=== PATIENT | male | born 1960 | race Caucasian/White ===

== ENCOUNTER → 2024-05-05 | Outpatient (CLI) | payer BC, SELFPAY ==
[2024-05-05 12:11] LABS: Collection Type, Urine Clean Catch
[2024-05-05 12:52] LABS: Bilirubin,Urine Negative (Negative); Blood,Urine Negative (Negative); Clarity,Urine Clear (Clear/Hazy); Color,Urine Yellow (Lt Yel-Yel); Culture Indicated,Urine Not Indicated; Glucose, Urine 1+ (Negative); Hyaline Casts,Urine < 1 /hpf (0-1); Ketones,Urine Negative (Negative); Leukocyte Esterase,Urine Negative (Negative); Nitrite,Urine Negative (Negative); PH,Urine 5.5 (5.0-7.0); Protein,Urine Negative (Neg - Trace); RBC,Urine 1 /hpf (0-3); Specific Gravity,Urine 1.026 (1.001-1.035); Squamous Epithelial Cell,Urine < 1 /hpf (0-5); Urobilinogen,Urine Negative mg/dL (0.0-1.0); WBC,Urine 1 /hpf (0-5)
[2024-05-05 13:01] LABS: Glucose Estimated Average 97 mg/dL (80-131)
[2024-05-05 13:03] LABS: Prostate Specific Antigen 0.32 ng/mL (0-4.00)
[2024-05-05 13:06] LABS: Alanine Aminotransferase 38 U/L (10-49); Albumin, Serum 4.4 gm/dL (3.4-4.8); Albumin/Globulin Ratio 1.6 (1.2-2.2); Alkaline Phosphatase 109 U/L (46-116); Anion Gap 8 (7-16); Aspartate Amino Transferase 36 U/L (0-34); BUN/Creatinine Ratio 21 Ratio (12-20); Bilirubin,Total 0.5 mg/dL (0.3-1.2); Blood Urea Nitrogen 23 mg/dL (9-23); Carbon Dioxide 30.3 mMol/L (20.0-31.0); Cardiac Risk Estimate 3.9 RATIO (4.0-6.7); Chloride 105 mMol/L (98-107); Cholesterol 217 mg/dL (132-200); Creatinine (Component) 1.1 mg/dL (0.6-1.3); Globulin 2.8 gm/dL (2.3-3.5); Glucose 120 mg/dL (74-106); HDL Cholesterol 56 mg/dL (40-60); LDL Cholesterol,Calculated 124 mg/dL (0-130); Osmolality,Calculated 289 (275-295); Potassium 4.5 mMol/L (3.4-5.1); Sodium 143 mMol/L (136-145); Thyroid Stimulating Hormone 2.58 uIU/mL (0.55-4.78); Total Protein 7.2 gm/dL (5.7-8.2); Triglycerides 185 mg/dL (30-150); eGFR > 60 See Note
== END | disposition home or self-care (01) ==
LOC: COPL 11:16
PROVIDERS: PCP Nurse Practitioner Family; Referring Provider Nurse Practitioner Family; Visit Provider Nurse Practitioner Family
DX: Z00.00 Encounter for general adult medical examination without abnormal findings (principal)
CPT/HCPCS: 36415; 80053; 80061; 81001; 83036; 84153; 84443

== ENCOUNTER 2024-12-13 12:27 | Emergency (ER) | payer BC, SELFPAY ==
[2024-12-13 12:31] VITALS: BMI 30.6
[2024-12-13 12:35] VITALS: BP 149/92; PULSE 79; RESP 20; TEMP 36.6; O2SAT 97
--- NOTE | 2024-12-13 12:43 | XR_ITS ---
Examination: Hand, left views Technique: Hand AP, lateral 2 views Date and time of exam: December 13, 2024 at 1249 hrs. Indications: Laceration to the third fourth and fifth digits today pain Findings: No acute fracture Soft tissue defects fourth and third digits Minute opacities volar to the distal phalanx fourth digit on the lateral view, clinical correlation advised Impression: Minor opacities in the soft tissue palmar to the distal phalanx fourth digit, clinical correlation advised
--- NOTE | 2024-12-13 12:47 | PD.EDWOUND ---
ED Wound/Laceration-RME/HPI General Chief Complaint: Wound/Laceration Stated Complaint: PART. AMPUTATION 3RD,4TH,5TH DIGIT W/SAW Time Seen by Provider: 12/13/24 12:43 Arrival date/time: 12/13/24 12:27 Limitations: no limitations RME / HPI RME / HPI narrative: 64 year old male with a history of asthma presents to the ED with a left hand injury involving the 3rd, 4th, and 5th fingers after a skill saw accident. The patient was cutting wood when he lost control of the saw. In an attempt to regain control, he placed his left hand under the wood, resulting in injury to his fingers. He immediately wrapped fingers and came directly to the ED for evaluation. Patient reports pain in the affected fingers but denies any loss of sensation or movement. No other injuries were noted. Last tetanus unknown. Related Data Home Medications ?Medication ?Instructions ?Recorded ?Confirmed venlafaxine 75 mg tablet 75 mg PO QDAY 12/13/22 10/08/23 silodosin 8 mg capsule (Rapaflo) 8 mg PO QDAY 10/08/23 10/08/23 Previous Rx's ?Medication ?Instructions ?Recorded cephalexin 500 mg capsule 500 mg PO BID #3 caps 10/10/23 hydrocodone 5 mg-acetaminophen 325 1 tab PO Q6H PRN pain #20 tabs 10/10/23 mg tablet cephalexin 500 mg capsule 500 mg PO Q6H #10 caps 12/13/24 diclofenac sodium 75 mg 75 mg PO Q12H #14 tabs 12/13/24 tablet,delayed release Allergies Allergy/AdvReac Type Severity Reaction Status Date / Time morphine Allergy Mild RASH Verified 12/13/24 12:34 Review of Systems Review of Systems Systems Reviewed: All systems reviewed, normal except as documented Past Medical History Past Medical History NEUROLOGIC: Negative Neurological Disorders CARDIAC: Negative Cardiac Disorders RESPIRATORY: Positive Asthma and Sleep Apnea GASTROINTESTINAL: Positive Hepatitis (A) GENITOURINARY: Negative Genitourinary Disorders or Renal Disease MUSCULOSKELETAL: Positive Musculoskeletal Disorders and Degenerative Disk Disease ENDOCRINE: Negative Endocrine Disorders PSYCHO/SOCIAL: Positive Anxiety OTHER HISTORY: Positive Hospitalization (surgery) and Chicken Pox Family History FAMILY HISTORY: Negative Family Psychiatric Problems, Family Respiratory Disorders, Family Cardiac Disorders, Family Gastrointestinal Problems, Family Cancer, Family Surgery or Family Anesthesia Reaction Social History SMOKING STATUS: Never smoker ED Exam General Limitations: Present no limitations General appearance: Present alert and in no apparent distress Head Head exam: Present atraumatic, normocephalic and normal inspection Eye Eye exam: Present normal appearance, PERRL and EOMI ENT ENT exam: Present normal exam, normal oropharynx and mucous membranes moist Neck Neck exam: Present normal inspection, full ROM and trachea midline Chest Chest inspection: Present normal inspection and symmetric chest wall rise Respiratory Respiratory exam: Present normal lung sounds bilaterally Cardiovascular Cardiovascular exam: Present regular rate, normal rhythm and normal heart sounds Abdominal Exam Abdominal exam: Present soft and normal bowel sounds Extremities Exam Extremities exam: Present full ROM and other Expanded Upper Extremity Exam Hand exam: Present other (volar lacerations to the middle finger measuring 3cm, ring finger measuring 2cm and pinky measuring 1cm ) Back Exam Back exam: Present normal inspection and full ROM Neurological Exam Neurological exam: Present alert, oriented X3 and CN II-XII intact Psychiatric Psychiatric exam: Present normal affect and normal mood Skin Skin exam: Present warm, dry, intact and normal color Course Quality Measures none Orders Category Date Time Status XR hand LT 2V Stat Exams 12/13/24 12:43 Completed Ondansetron Inj [Zofran Inj] Med 12/13/24 12:38 Discontinued 4 mg IVP X1 ONE Ondansetron Inj [Zofran Inj] Med 12/13/24 12:43 Discontinued 4 mg IVP X1 ONE TET,DIP/PERT AC (Adult)-Tdap [Boostrix Adult (Tdap) Med 12/13/24 12:43 Discontinued Vacc] 0.5 ml IMI .ONCE ONE cefTRIAXone/D5w 1gm IV premix [Rocephin/D5w 1gm IV Med 12/13/24 12:44 Discontinued premix] 1 gm in 50 ml IV X1 fentaNYL INJ [Sublimaze Inj] Med 12/13/24 12:38 Discontinued 100 mcg IVP X1 ONE fentaNYL INJ [Sublimaze Inj] Med 12/13/24 12:43 Discontinued 100 mcg IVP X1 ONE Vital Signs Vital signs: Vital Signs Temperature 97.9 F 12/13/24 12:35 Pulse Rate 79 12/13/24 12:35 Respiratory Rate 20 12/13/24 12:35 Blood Pressure 149/92 H 12/13/24 12:35 Pulse Oximetry (%) 97 12/13/24 12:35 Oxygen Delivery Method Room Air 12/13/24 12:35 Pulse ox is 97% on room air which is adequate. PROCEDURES: Laceration Laceration 1: Site: hand Side (If applicable): left Size (cm): 3 Description: linear Depth: involves tendon Local Anesthetic: lidocaine 1% Amount of anesthesia used (mL): 10 Pre-repair: wound explored, irrigated extensively and deep structures intact Skin layer closed with: nylon Suture size (cm): 3-0 Number of sutures: 10 Technique: simple, interrupted Laceration 2: Site: hand Side (If applicable): left Size (cm): 2 Description: linear Depth: simple, single layer Local Anesthetic: lidocaine 1% Amount of anesthesia used (mL): 15 Pre-repair: wound explored, irrigated extensively and deep structures intact Skin layer closed with: nylon Suture size (cm): 3-0 Number of sutures: 8 Technique: simple, interrupted Wound / Laceration MDM Narrative MDM Narrative:: Tiffanie Martinez am scribing for and in the presence of Dr. Desir. Assessment: Hand and finger lacerations secondary to saw injury Plan: Tetanus, pain management, irrigate and suture lacerations, perform thorough examination for tendon, nerve, and vascular injury. Consider hand surgery referral if deep or complex injury suspected. On reassessment, laceration with partial flexor tendon injury to the left ring finger. Patient retains movement and function, though strength is slightly decreased and area is tender. Lacerations were repaird as noted above. Plan: splinted left ring finger for protection. Advised patient to follow up with hand surgery within 3 days for further evaluation and management. Provided wound care and activity modification instructions. Monitor for signs of infection or worsening function Patient data External records reviewed:: [facility] previous records (I reviewed H&P on 10/10/2023 ) Clinical information provided by:: patient Social determinants that could affect healthcare access:: none Patient has the following chronic illnesses:: Asthma How is presenting disease/condition affected by chronic disease/condition?: uneffected by Evaluation data The following diagnostics were reviewed and interpreted by me:: radiology exam(s) Lab and/or radiology exams considered but not ordered:: None Interpretation Summary: Ordering Physician: Ramirez Neil MD Date of Service: 12/13/24 Procedure(s): XR hand LT 2V Accession Number(s): [id number] cc: Ramirez Neil MD; Nadiya Ga; Yuriy Conway MD~ Examination: Hand, left views Technique: Hand AP, lateral 2 views Date and time of exam: December 13, 2024 at 1249 hrs. Indications: Laceration to the third fourth and fifth digits today pain Findings: No acute fracture Soft tissue defects fourth and third digits Minute opacities volar to the distal phalanx fourth digit on the lateral view, clinical correlation advised Impression: Minor opacities in the soft tissue palmar to the distal phalanx fourth digit, clinical correlation advised Dictated By: Yuriy Conway MD Signed By: <Electronically signed by Yuriy Conway MD in [place]> 12/13/24 1426 Medications / Prescriptions Medications or Prescriptions considered but not ordered:: None Medication administrations:: Medication Administration History Discontinued Medications Diphtheria/Tetanus/Acell Pertussis (Diphth,Pertuss(Acell),Tet Vac 0.5 Ml Syr- Adult) 0.5 ml IMi .ONCE ONE Stop: 12/13/24 12:44 Last Admin: 12/13/24 13:27 Dose: 0.5 ml Documented By: SREE Fentanyl Citrate (Fentanyl Cit Inj 50 Mcg/Ml Amp 2ml) 100 mcg IVP X1 ONE Stop: 12/13/24 12:39 Last Admin: 12/13/24 12:49 Dose: 100 mcg Documented By: SREE Fentanyl Citrate (Fentanyl Cit Inj 50 Mcg/Ml Amp 2ml) 100 mcg IVP X1 ONE Stop: 12/13/24 12:44 Last Admin: 12/13/24 14:22 Dose: 100 mcg Documented By: SREE Ceftriaxone Sodium/Dextrose (Rocephin/D5w 1gm Iv Premix) 1 gm in 50 mls @ 100 mls/hr IV X1 ONE Stop: 12/13/24 13:13 Last Infusion: 12/13/24 14:23 Dose: Infused Documented By: Admin: 12/13/24 13:30 Dose: 100 mls/hr Documented By: SREE Ondansetron HCl (Ondansetron Inj 2 Mg/Ml Inj 2 Ml) 4 mg IVP X1 ONE; Protocol Stop: 12/13/24 12:39 Last Admin: 12/13/24 12:50 Dose: 4 mg Documented By: SREE Ondansetron HCl (Ondansetron Inj 2 Mg/Ml Inj 2 Ml) 4 mg IVP X1 ONE; Protocol Stop: 12/13/24 12:44 Last Admin: 12/13/24 13:00 Dose: Not Given Documented By: SREE Non-Admin Reason: Duplicate Medication on eMAR See above Consultations Consultation(s) initiated? (list below): No Diagnosis Wound Differential Diagnosis: laceration, abrasion and avulsion of skin Most likely diagnosis given after review of the tests above:: Laceration Avulsion of skin Admission Indicated Admission indicated?: not indicated Admission Request Was there a request for admission?: No Disposition Plan Disposition Plan: Discharge Discharge Attestation Discharge Attestation: The patient and all family members were given an opportunity to ask questions and understood the discharge instructions. Discharge instructions specifically effects, indications for sooner follow up or return to the emergency department, and the expected course of current diagnosis. Patient condition: Stable Discharge Plan Plan Patient Disposition: HOME (Self Care) Prescriptions/Referrals Prescriptions/Med Rec: New cephalexin 500 mg capsule 500 mg PO Q6H Qty: 10 0RF diclofenac sodium 75 mg tablet,delayed release (DR/EC) 75 mg PO Q12H Qty: 14 0RF No Action venlafaxine 75 mg tablet 75 mg PO QDAY silodosin [Rapaflo] 8 mg Capsule 8 mg PO QDAY Rx Instructions: must administer with a meal/food hydrocodone-acetaminophen 5-325 mg tablet 1 tab PO Q6H MDD 5 PRN (Reason: pain) Qty: 20 0RF cephalexin 500 mg capsule 500 mg PO BID Qty: 3 0RF Rx Instructions: Begin first dose today Referrals: Nadiya Ga FNP [Primary Care Provider] - In 1 week Problem List Clinical Impression: Laceration, Avulsion of skin, Injury of flexor tendon of hand Patient/Caregiver Discharge Instructions Education Materials: Treating Flexor Tendon Lacerations, ED Laceration, Hand: All Closures Additional Instructions: Follow-up with the hand surgeon in the next [address] Kalpesh Lester M.D. Hand surgeon in [place], [place] Address: [address] [place] [address] Also follow-up with your primary care doctor in the next 3 days to check on the wound and then follow-up with the hand surgeon or your primary care doctor in 10 to 14 days to remove the stitches Print Language: Djiboutian Stand Alone Forms: [employer] Info., Patient Portal Info Letter
[2024-12-13] MEDS: fentaNYL CIT INJ 50 mCg/ML AMP 2ML 100 MCG IVP ×2 (12:49→14:22)
[2024-12-13] MEDS: ONDANSETRON INJ 2 MG/ML INJ 2 ML 4 MG IVP (12:50)
[2024-12-13] MEDS: DIPHTH,PERTUSS(ACELL),TET VAC 0.5 ML SYR- ADULT IMi (13:27)
[2024-12-13] MEDS: cefTRIAXone/D5w 1gm IV premix 1 GM/50 ML BAG IV (13:30)
[2024-12-13 13:33] VITALS: BP 126/87; PULSE 66; RESP 17; TEMP 36.6; O2SAT 94
[2024-12-13 14:27] VITALS: BP 134/94; PULSE 73; RESP 19; TEMP 36.4; O2SAT 95
[2024-12-13 16:36] VITALS: BP 128/91; PULSE 64; RESP 16; TEMP 36.6; O2SAT 95
== END 2024-12-13 16:20 | disposition home or self-care (01) ==
PROVIDERS: Emergency Provider Emergency Medicine; PCP Nurse Practitioner Family
DX: S61.213A Laceration without foreign body of left middle finger without damage to nail, initial encounter (principal); S61.215A Laceration without foreign body of left ring finger without damage to nail, initial encounter; S61.217A Laceration without foreign body of left little finger without damage to nail, initial encounter; Z23 Encounter for immunization; W31.2XXA Contact with powered woodworking and forming machines, initial encounter; S66.909 Unspecified injury of unspecified muscle, fascia and tendon at wrist and hand level, unspecified hand
CPT/HCPCS: 12002; 73120; 90471; 90715; 96365; 96375; 96376; 99284; J0696; J2405; J3010

== ENCOUNTER → 2024-12-17 | Outpatient (CLI) | payer BC, SELFPAY ==
--- NOTE | 2024-12-17 13:54 | XR_ITS ---
Examination: Wrist, left 3 views Technique: Wrist AP, oblique, lateral 3 views Date and time of exam: December 17, 2024 1357 hours INDICATIONS: Injury to the wrist, laceration 5 days ago. FINDINGS: No fracture or dislocation. No opaque foreign bodies IMPRESSION: No opaque foreign bodies
--- NOTE | 2024-12-17 13:54 | XR_ITS ---
Examination: Hand, left 3 views Technique: Hand AP, oblique, lateral 3 views Date and time of exam: December 17, 2024 1357 hours INDICATIONS: Injury to the hand 5 days ago, lacerations to the third fourth and fifth digits FINDINGS: No fractures No dislocations No opaque foreign bodies IMPRESSION: No opaque foreign bodies
== END | disposition home or self-care (01) ==
PROVIDERS: PCP Nurse Practitioner Gerontology; Referring Provider Nurse Practitioner Gerontology; Visit Provider Nurse Practitioner Gerontology
DX: S61.215A Laceration without foreign body of left ring finger without damage to nail, initial encounter (principal); S61.217A Laceration without foreign body of left little finger without damage to nail, initial encounter; S69.92XA Unspecified injury of left wrist, hand and finger(s), initial encounter; X58.XXXA Exposure to other specified factors, initial encounter
CPT/HCPCS: 73110; 73130